=== PATIENT | female | born 1955 | race African-American/Black ===

== ENCOUNTER 2016-07-21 11:33 | Inpatient (IN) | payer SELFPAY ==
[2016-07-21] VITALS (11 sets, daily range): BP systolic 116–155; BP diastolic 51–67; PULSE 78–103; RESP 15–20; TEMP 98.3–99; O2SAT 92–98
[~2016-07-21] VITALS: Ht 170.2 cm; Wt 83.3 kg
[~2016-07-21 11:33] MED LIST: Z.0.NO CURRENT MEDS
[2016-07-21 13:33] LABS: AUTOMATED NEUTROPHIL # 2.3 TH/MM3 (1.8-7.7); BASOPHIL % 0.5 % (0.0-2.0); EOSINOPHIL % 0.4 % (0.0-4.0); LYMPH % 28.7 % (9.0-44.0); LYMPHOCYTE # 1.2 TH/MM3 (1.0-4.8); MEAN CELL VOLUME 114.4 FL (80.0-100.0); MEAN CORPUSCULAR HEMOGLOBIN 35.7 PG (27.0-34.0); MEAN CORPUSCULAR HGB CONC 31.2 % (32.0-36.0); MONO % 13.8 % (0.0-8.0); NEUT % 56.6 % (16.0-70.0); PLATELET COUNT 216 TH/MM3 (150-450); RED CELL DISTRIBUTION WIDTH 33.1 % (11.6-17.2)
[2016-07-21 13:37] LABS: RED BLOOD COUNT 0.72 MIL/MM3 (4.00-5.30)
[2016-07-21 13:46] LABS: HEMATOCRIT 8.2 % (35.0-46.0); HEMO FLAGS AUTO DIFF
[2016-07-21] MEDS ORDERED: SODIUM CHLORIDE 0.9% FLUSH 5 ML FLUSH IVF PRN (14:00)
[2016-07-21 14:01] LABS: BICARBONATE 19.9 MEQ/L (21.0-32.0); POTASSIUM 3.9 MEQ/L (3.5-5.1)
[2016-07-21 14:13] LABS: KERATOCYTES 1+ (NORMAL); PLATELET ESTIMATE SMEAR NORMAL (NORMAL); PLATELET MORPHOLOGY NORMAL (NORMAL); SCAN/DIFF AUTO DIFF CONFIRMED
[2016-07-21 14:30] LABS: REVIEW FLAG FINAL
[2016-07-21 14:32] LABS: HEMATOCRIT 8.8 % (35.0-46.0)
--- NOTE | 2016-07-21 14:37 | PD ---
HPI Chief Complaint: General Weakness Time Seen by Provider: 13:50 Travel History International Travel<30 days: No Contact w/Intl Traveler<30days: No Traveled to known affect area: No History of Present Illness HPI Patient is a 60-year-old female with history of anemia, pancytopenia by chart review, who presents the emergency department with generalized weakness. For the last 1-2 weeks she has been feeling increasingly generally weak, fatigued. She notes dyspnea with exertion. She denies any chest pain. No nausea or vomiting. She denies any rectal bleeding. She states she's been eating and drinking normally. Patient was hospitalized approximately one year ago with a hemoglobin of approximately 3 and pancytopenia. States she never followed up with hematology as an outpatient. [facility] Past Medical History Arthritis: No Asthma: No Autoimmune Disease: No Anxiety: No Depression: No Cancer: No Cardiovascular Problems: No High Cholesterol: No Chemotherapy: No Chest Pain: No Congestive Heart Failure: No COPD: No Cerebrovascular Accident: No Diabetes: No Diminished Hearing: No Endocrine: No GERD: No Genitourinary: No Hiatal Hernia: No Immune Disorder: No Kidney Stones: No Musculoskeletal: No Neurologic: No Psychiatric: No Reproductive: No Respiratory: No Migraines: No Radiation Therapy: No Renal Failure: No Seizures: No Sickle Cell Disease: No Thyroid Disease: No Ulcer: No Past Surgical History Abdominal Surgery: No AICD: No Cardiac Surgery: No Genitourinary Surgery: No Gynecologic Surgery: No Insulin Pump: No Joint Replacement: No Pacemaker: No Thoracic Surgery: No Social History Alcohol Use: No Tobacco Use: No Substance Use: No Allergies-Medications (Allergen,Severity, Reaction): Coded Allergies: No Known Allergies (Verified , 07/25/15) Reported Meds & Prescriptions Reported Meds & Active Scripts Active Reported No Current Meds (Miscellaneous Medication) Misc Review of Systems Except as stated in HPI: all other systems reviewed are Neg Physical Exam Narrative GENERAL: Well-appearing female in no acute distress SKIN: Warm and dry. HEAD: Normocephalic. EYES: No scleral icterus. No injection or drainage. Pale conjunctiva ENT: Mucous membranes pink and moist. NECK: Supple CARDIOVASCULAR: Borderline tachycardia, heart rate 100s, regular rhythm. No murmur appreciated. RESPIRATORY: No accessory muscle use. Clear to auscultation. Breath sounds equal bilaterally. GASTROINTESTINAL: Abdomen soft, non-tender, nondistended. RECTAL: Unremarkable digital rectal examination. Positive Hemoccult. MUSCULOSKELETAL: Normal gait NEUROLOGICAL: Awake and alert. Normal speech. PSYCHIATRIC: Appropriate mood and affect; insight and judgment normal. Data Data Last Documented VS Vital Signs Date Time Temp Pulse Resp B/P Pulse Ox O2 Delivery O2 Flow Rate FiO2 07/21/16 11:39 98.6 103 16 116/55 95 Orders Complete Blood Count With Diff (07/21/16 11:41) Basic Metabolic Panel (Bmp) (07/21/16 11:41) Chest, Pa & Lat (07/21/16 11:41) Electrocardiogram (07/21/16 11:41) Troponin I (07/21/16 13:12) Prothrombin Time / Inr (Pt) (07/21/16 14:00) Act Partial Throm Time (Ptt) (07/21/16 14:00) Type And Screen (07/21/16 14:00) Red Blood Cells (Rbc) (07/21/16 14:00) Blood Product Administration .UPON TRANSFUSION (07/21/16 14:00) Ecg Monitoring (07/21/16 14:00) Iv Access Insert/Monitor (07/21/16 14:00) Oximetry (07/21/16 14:00) Sodium Chloride 0.9% Flush (Ns Flush) (07/21/16 14:00) Hgb & Hct (07/21/16 14:00) Consult Hematology (07/21/16 ) Chest, Single Ap (07/21/16 ) Labs Laboratory Tests Test 07/21/16 07/21/16 13:07 14:10 White Blood Count 4.0 TH/MM3 Red Blood Count 0.72 MIL/MM3 Hemoglobin 2.6 GM/DL 2.7 GM/DL Hematocrit 8.2 % 8.8 % Mean Corpuscular Volume 114.4 FL Mean Corpuscular Hemoglobin 35.7 PG Mean Corpuscular Hemoglobin 31.2 % Concent Red Cell Distribution Width 33.1 % Platelet Count 216 TH/MM3 Mean Platelet Volume 11.2 FL Neutrophils (%) (Auto) 56.6 % Lymphocytes (%) (Auto) 28.7 % Monocytes (%) (Auto) 13.8 % Eosinophils (%) (Auto) 0.4 % Basophils (%) (Auto) 0.5 % Neutrophils # (Auto) 2.3 TH/MM3 Lymphocytes # (Auto) 1.2 TH/MM3 Monocytes # (Auto) 0.6 TH/MM3 Eosinophils # (Auto) 0.0 TH/MM3 Basophils # (Auto) 0.0 TH/MM3 CBC Comment AUTO DIFF Differential Comment AUTO DIFF CONFIRMED Platelet Estimate NORMAL Platelet Morphology Comment NORMAL Keratocytes 1+ Sodium Level 134 MEQ/L Potassium Level 3.9 MEQ/L Chloride Level 106 MEQ/L Carbon Dioxide Level 19.9 MEQ/L Anion Gap 8 MEQ/L Blood Urea Nitrogen 10 MG/DL Creatinine 0.91 MG/DL Estimat Glomerular Filtration 76 ML/MIN Rate Random Glucose 143 MG/DL Calcium Level 7.6 MG/DL Troponin I 0.02 NG/ML MDM Medical Decision Making Medical Screen Exam Complete: Yes Emergency Medical Condition: Yes Medical Record Reviewed: Yes Differential Diagnosis 60-year-old female with history of pancytopenia here with generalized weakness worsening for the last 1-2 weeks with dyspnea on exertion. Differential includes anemia, electrolyte abnormality, renal dysfunction, UTI, arrhythmia, ACS. Narrative Course Patient placed on monitor, IV established and blood obtained. A twelve-lead EKG shows sinus rhythm with T-wave inversions V4 through V6. I do not have an old EKG with which to compare. CBC, BMP, troponin, coags, type and screen obtained and notable for hemoglobin 2.6. This was rechecked and is true. Patient was transfused with 4 units packed red blood cells. Hematology consulted given history of pancytopenia. Her Hemoccult was positive, but patient is on iron supplementation which could make this a false positive. Patient will be admitted for further management. Critical Care Narrative Aggregate critical care time was 55 minutes. Time to perform other separately billable procedures was not included in the critical care time. My time did not include minutes spent treating any other patients simultaneously or on activities that did not directly contribute to the patient's treatment. The services I provided to this patient were to treat and/or prevent clinically significant deterioration that could result in: CardioPulmonary decompensation, , disability I provided critical care services requiring my management, as noted below: Chart data review, documentation time, medication orders and management, vital sign assessments/reviewing monitor data, ordering and reviewing lab tests, ordering and interpreting/reviewing x-rays and diagnostic studies, care of the patient and discussion of the patient with the admitting physicians. H[facility]pt Point of Care Internal Pos. & Neg. Controls: Passed Fecal Specimen Occult Blood: Positive Diagnosis Primary Impression: Severe anemia Additional Impressions: Generalized weakness Dyspnea on exertion Admitting Information Admitting Physician Requests: Admit Sera Patel MD Jul 21, 2016 14:37
[2016-07-21 14:58] LABS: APTT (PATIENT) 19.8 SEC (24.3-30.1); INTERNATIONAL NORMALIZED RATIO 1.1 RATIO; PROTHROMBIN TIME - PATIENT 12.5 SEC (9.8-11.6)
--- NOTE | 2016-07-21 16:05 | HHI.HP ---
[facility] Family Medicine Primary Care Physician No Primary Care Physician Admission Diagnosis severe anemia Diagnoses: International Travel<30 Days: No Contact w/Intl Traveler<30days: No Known Affected Area: No History of Present Illness Patient is a 60-year-old female who does not get regular medical care who presents here today for severe anemia. Patient had been complaining of increased weakness and shortness of breath over the last few weeks that have progressively worsened. She is severely fatigued and short of breath when walking from her house to a car. She denies any melena, hematochezia or any other source of bleeding. Denies weight loss, night sweats, nausea/vomiting, abdominal pain. She does endorse symptoms of cough with clear sputum and hoarseness 8 days. Of note patient was admitted one year ago on 07/2015 for symptomatic anemia and found to have a hemoglobin 3.0. It was recommended to have a bone marrow biopsy however does not appear that this was done as patient left AMA. Today she reports that she simply wants to get a blood transfusion and then leave. She is currently refusing a bone marrow biopsy as she believes it is done in black people and causes cancer. I thoroughly explained to patient that this is not the case. Patient is willing to stay at this time. ( January Romano MD R2) Review of Systems Constitutional: COMPLAINS OF: Fatigue, DENIES: Fever, Weight loss, Chills Respiratory: COMPLAINS OF: Cough, Sputum production, Shortness of breath, DENIES: Hemoptysis Cardiovascular: COMPLAINS OF: Dyspnea on Exertion, Lower Extremity Edema, DENIES: Chest pain, Palpitations Gastrointestinal: DENIES: Abdominal pain, Black stools, Bloody stools, Nausea, Vomiting Genitourinary: DENIES: Hematuria Musculoskeletal: DENIES: Joint Swelling Neurologic: DENIES: Abnormal gait (January Romano MD R2) Past Family Social History Past Medical History Previously admitted on 07/2015 for symptomatic anemia and found to have a hemoglobin 3.0 it was recommended to have a bone marrow biopsy however this was not done as patient left AMA Past Surgical History Denies Reported Medications Reported Meds & Active Scripts Active Reported No Current Meds (Miscellaneous Medication) Misc (January Romano MD R2) Allergies: Coded Allergies: No Known Allergies (Verified , 07/25/15) Family History Mother: Cardiac issues, depression Father: Stomach issues. Alcoholic. Social History Lives alone Alcohol: Denies, maybe 1 drink a year Tobacco: None, reports quitting years ago but is unable to specify how long ago where or how much she used to smoke. Illicit: Denies (January Romano MD R2) Physical Exam Vital Signs Vital Signs Date Time Temp Pulse Resp B/P Pulse Ox O2 Delivery O2 Flow Rate FiO2 07/21/16 15:45 99.0 93 15 121/51 98 Room Air 07/21/16 15:45 99.0 93 15 121/51 97 Room Air 07/21/16 14:15 15 98 Room Air 07/21/16 11:39 98.6 103 16 116/55 95 Physical Exam GENERAL: This is a well-nourished, well-developed patient, in no apparent distress. Hoarse voice. SKIN: No rashes, ecchymoses or lesions. Cool and dry. HEAD: Atraumatic. Normocephalic. No temporal or scalp tenderness. EYES: Pupils equal round and reactive. Extraocular motions intact. No scleral icterus. No injection or drainage. ENT: Nose without bleeding, purulent drainage. Throat without erythema, tonsillar hypertrophy or exudate. Uvula midline. Airway patent. NECK: Trachea midline. No lymphadenopathy. Supple, nontender, no meningeal signs. CARDIOVASCULAR: Regular rate and rhythm without murmurs, gallops, or rubs. RESPIRATORY: Clear to auscultation. Breath sounds equal bilaterally. No wheezes , rales, or rhonchi. GASTROINTESTINAL: Abdomen soft, non-tender, nondistended. No hepato-splenomegaly , or palpable masses. No guarding. MUSCULOSKELETAL: Extremities without clubbing, cyanosis. 2+ edema bilaterally up to mid shins. No calf tenderness. Negative Homans sign bilaterally. NEUROLOGICAL: Awake and alert. Motor and sensory grossly within normal limits. Normal speech. Laboratory Laboratory Tests Test 07/21/16 07/21/16 13:07 14:10 White Blood Count 4.0 Red Blood Count 0.72 Hemoglobin 2.6 2.7 Hematocrit 8.2 8.8 Mean Corpuscular Volume 114.4 Mean Corpuscular Hemoglobin 35.7 Mean Corpuscular Hemoglobin 31.2 Concent Red Cell Distribution Width 33.1 Platelet Count 216 Mean Platelet Volume 11.2 Neutrophils (%) (Auto) 56.6 Lymphocytes (%) (Auto) 28.7 Monocytes (%) (Auto) 13.8 Eosinophils (%) (Auto) 0.4 Basophils (%) (Auto) 0.5 Neutrophils # (Auto) 2.3 Lymphocytes # (Auto) 1.2 Monocytes # (Auto) 0.6 Eosinophils # (Auto) 0.0 Basophils # (Auto) 0.0 CBC Comment AUTO DIFF Differential Comment AUTO DIFF CONFIRMED Platelet Estimate NORMAL Platelet Morphology Comment NORMAL Keratocytes 1+ Sodium Level 134 Potassium Level 3.9 Chloride Level 106 Carbon Dioxide Level 19.9 Anion Gap 8 Blood Urea Nitrogen 10 Creatinine 0.91 Estimat Glomerular Filtration 76 Rate Random Glucose 143 Calcium Level 7.6 Troponin I 0.02 Prothrombin Time 12.5 Prothromb Time International 1.1 Ratio Activated Partial 19.8 Thromboplast Time Blood Type O POSITIVE Antibody Screen NEGATIVE Crossmatch Leukocyte-Reduced Red Blood Cells Blood Bank Comment (January Romano MD R2) Result Diagram: 07/21/16 1410 07/21/16 1307 Assessment and Plan Assessment and Plan 60-year-old female with no significant PMH. Admitted for severe anemia. Code Status Full Discussed Condition With Dr. Ochoa and Dr. Lawrence (January Romano MD R2) Problem List: (1) Severe anemia Status: Acute Plan: Found to have severe symptomatic anemia on admission with an H&H of 2.6/ 8.2 with immediate repeat of 2.7/8.8 which shows the reliability of those results. History significant for prior history of severe anemia one year ago, however she was also found to be pancytopenic at that time. Remaining cell lines on this admission are unremarkable. No identifiable source of bleeding at this time. Hemoccult in the ED was positive but the patient was also taking iron. -EKG shows T-wave inversions in lateral leads which is likely due to severe anemia especially in the setting of a normal troponin and in the absence of chest pain. -Iron studies not suggestive of iron deficiency anemia. Percent saturation is 93% and ferritin is elevated at 777. -Transfuse 4 units -B12 and folate WNL -MMA ordered -Will consider getting GI consult after discussion with attending Hematology consulted: Appreciate recommendations (2) CHF (congestive heart failure) Status: Acute Plan: Suspected undiagnosed CHF exacerbation. Chest x-ray significant for cardiomegaly even in the setting of AP view. BMP is elevated at 633. No pleural effusions noted. -Echo ordered -Cardiac telemetry Medications: * Lasix provided between transfusions * Lasix 40 mg IV daily (3) Hoarseness of voice Status: Acute Plan: 1 week history of voice hoarseness and cough. May be due to recent cold , however symptoms may be due to a malignancy. No associated unintentional weight loss or night sweats or palpable lymph nodes. Patient has not had preventive colonoscopy and is found to have severe anemia but this anemia is not due to iron deficiency. -Consider getting GI consult for possible EGD in addition to colonoscopy. (4) Nutrition, metabolism, and development symptoms Status: Acute Plan: Diet: Regular Fluids: None Electrolytes: Mild hyponatremia, continue to monitor DVT prophylaxis: Contraindicated due to potential bleed GI prophylaxis: Protonix 40 daily (January Romano MD R2) Physician Certification 2 Midnight Certification Type: Admission for Inpatient Services Order for Inpatient Services The services are ordered in accordance with Medicare regulations or non- Medicare payer requirements, as applicable. In the case of services not specified as inpatient-only, they are appropriately provided as inpatient services in accordance with the 2-midnight benchmark. Estimated LOS (days): 2 days is the estimated time the patient will need to remain in the hospital, assuming treatment plan goals are met and no additional complications. Post-Hospital Plan: Home (January Romano MD R2) 2 Midnight Certification Type: Admission for Inpatient Services Post-Hospital Plan: Home (Jona Lawrence MD) January Romano MD R2 Jul 21, 2016 16:05 Jona Lawrence MD Jul 21, 2016 22:24
--- NOTE | 2016-07-21 16:20 | HHI.CCPN ---
History - Height: 170.18 cm Weight: 79.55 kg Allergies: Coded Allergies: No Known Allergies (Verified , 07/25/15) Major 24 Hour Events Notified by Dr. Kearney/ED physician regarding admission to ICU of [facility] with hemoglobin 2.7. She has a known history of anemia and was supposed to get a bone marrow biopsy this month but however has been able to proceed with this. She has currently hemodynamically stable and is being admitted under the care of the [facility]. We'll be available if our services are needed but not needed at this time.. Exam Patient Data - Vital Signs Date Time Temp Pulse Resp B/P Pulse Ox O2 Delivery O2 Flow Rate FiO2 07/21/16 16:00 98.3 94 15 152/64 98 Room Air 07/21/16 15:45 99.0 93 15 121/51 98 Room Air 07/21/16 15:45 99.0 93 15 121/51 97 Room Air 07/21/16 14:15 15 98 Room Air 07/21/16 11:39 98.6 103 16 116/55 95 Results CBC/BMP: 07/21/16 1410 07/21/16 1307 Ricky Parsons MD Jul 21, 2016 16:20
[2016-07-21] MEDS ORDERED: ONDANSETRON HCL 4 MG/2 ML VIAL IVP PRN (16:45)
[2016-07-21] MEDS ORDERED: SODIUM CHLORIDE 0.9% FLUSH 5 ML FLUSH FLUSH PRN (16:45)
[2016-07-21] MEDS ORDERED: FUROSEMIDE 20 MG/2 ML VIAL IV ONE (16:45)
[2016-07-21] MEDS ORDERED: NALOXONE HCL 0.4 MG/ML AMP IV PRN ×2 (16:45→21:45)
[2016-07-21] MEDS ORDERED: ENALAPRILAT 1.25 MG/ML VIAL IV PRN (16:45)
[2016-07-21 17:51] LABS: FERRITIN 777 NG/ML (8-252); TRANSFERRIN IRON PROFILE 160 MG/DL (200-360)
[2016-07-21] MEDS ORDERED: SODIUM CHLORIDE 0.9% FLUSH 5 ML FLUSH FLUSH SCH (21:00)
[2016-07-21] MEDS ORDERED: ACETAMINOPHEN 325 MG TAB PO PRN (21:45)
[2016-07-21] MEDS ORDERED: ACETAMINOPHEN/HYDROcodone 325 MG/10 MG TAB PO PRN (21:45)
[2016-07-21] MEDS ORDERED: ACETAMINOPHEN/HYDROcodone 325 MG/5 MG TAB PO PRN (21:45)
[2016-07-21] MEDS ORDERED: CHLORHEXIDINE GLUCONATE 2 % 1 PACK (2 CLOTHS)(extra cloths) TOP PRN (21:45)
--- NOTE | 2016-07-21 22:29 | HHI.FPPN ---
Subjective Remarks Attending note: Patient seen and examined. Very pleasant 60-year-old woman admitted with a hemoglobin of 2.7, hematocrit of 8.2 and complaints over the last 2 or 3 weeks of a cough. Very notable that in July 2015 the patient had an admission with a hemoglobin of 5.7, hematocrit 17.4, platelets of 1.8 and platelets of 71,000. Patient was being evaluated by hematology, however, she was very concerned that she had larger bill was already "13,000 hours "she had no insurance and she stated she just had to leave. She was very concerned about financial consequences. Patient has been taking cod liver oil oil, and iron tablets, and fish oil capsules after her last hospitalization. Apparently, the patient had been getting more and more fatigued. She went to a local convenience store last night and upon coming back to the car stated she was so tired and short of breath. No chest pain. Please refer to the resident's history and physical for complete discussion of the past month which, family history and social history as well as review of systems. Objective Vitals Vital Signs Date Time Temp Pulse Resp B/P Pulse Ox O2 Delivery O2 Flow Rate FiO2 07/21/16 21:15 98.7 87 20 131/65 92 07/21/16 20:21 84 18 122/58 96 07/21/16 19:00 98.8 78 15 134/64 98 07/21/16 18:45 98.5 97 16 131/62 97 Room Air 07/21/16 18:30 98.7 91 16 139/63 97 Room Air 07/21/16 17:45 96 15 131/60 97 Room Air 07/21/16 16:49 98.5 90 15 155/67 98 Room Air 07/21/16 16:00 98.3 94 15 152/64 98 Room Air 07/21/16 15:45 99.0 93 15 121/51 98 Room Air 07/21/16 15:45 99.0 93 15 121/51 97 Room Air 07/21/16 14:15 15 98 Room Air 07/21/16 11:39 98.6 103 16 116/55 95 I/O 07/20/16 07/20/16 07/20/16 07/21/16 07/21/16 07/21/16 07:00 15:00 23:00 07:00 15:00 23:00 Intake Total 550 ml Balance 550 ml Intake Packed Cells 550 ml Result Diagram: 07/21/16 1410 07/21/16 1307 Objective Remarks Vital signs noted. Afebrile. General appearance: Middle-aged woman who is very pleasant in conversation. Very articulate. HEENT: Oropharynx pale mucosa Lungs: Clear to auscultation. Cardiac: S1-S2, no S3, heart rate slightly increased. Abdomen: Protuberant, nontender, no apparent masses or organomegaly. Extremities: Trace treated with edema, the feet are warm and dry, pulses are intact. Please refer to the resident physical exam for complete discussion details. A/P Assessment and Plan Clinical assessment 60-year-old woman admitted with profound anemia and a 2 to three-week history of cough. Patient seen and examined. Case reviewed and discussed with resident team. Agree with plan of care as discussed with me and documented in the resident note. Problem List: (1) Severe anemia Status: Acute Plan: Found to have severe symptomatic anemia on admission with an H&H of 2.6/ 8.2 with immediate repeat of 2.7/8.8 which shows the reliability of those results. History significant for prior history of severe anemia one year ago, however she was also found to be pancytopenic at that time. Remaining cell lines on this admission are unremarkable. No identifiable source of bleeding at this time. Hemoccult in the ED was positive but the patient was also taking iron. -EKG shows T-wave inversions in lateral leads which is likely due to severe anemia especially in the setting of a normal troponin and in the absence of chest pain. -Iron studies not suggestive of iron deficiency anemia. Percent saturation is 93% and ferritin is elevated at 777. -Transfuse 4 units -B12 and folate WNL -MMA ordered -Will consider getting GI consult after discussion with attending Hematology consulted: Appreciate recommendations (2) CHF (congestive heart failure) Status: Acute Plan: Suspected undiagnosed CHF exacerbation. Chest x-ray significant for cardiomegaly even in the setting of AP view. BMP is elevated at 633. No pleural effusions noted. -Echo ordered -Cardiac telemetry Medications: * Lasix provided between transfusions * Lasix 40 mg IV daily (3) Hoarseness of voice Status: Acute Plan: 1 week history of voice hoarseness and cough. May be due to recent cold , however symptoms may be due to a malignancy. No associated unintentional weight loss or night sweats or palpable lymph nodes. Patient has not had preventive colonoscopy and is found to have severe anemia but this anemia is not due to iron deficiency. -Consider getting GI consult for possible EGD in addition to colonoscopy. (4) Nutrition, metabolism, and development symptoms Status: Acute Plan: Diet: Regular Fluids: None Electrolytes: Mild hyponatremia, continue to monitor DVT prophylaxis: Contraindicated due to potential bleed GI prophylaxis: Protonix 40 daily Jona Lawrence MD Jul 21, 2016 22:29
[2016-07-22] VITALS: BP 135/63; PULSE 81; RESP 24; TEMP 98.9; O2SAT 97
[2016-07-22 00:05] VITALS: BP 138/62; PULSE 80; RESP 20; TEMP 98.6; O2SAT 100
[2016-07-22 02:00] VITALS: PULSE 80
[2016-07-22 02:15] VITALS: BP 135/63; PULSE 81; RESP 24; TEMP 98.9; O2SAT 97
[2016-07-22 03:45] LABS: AUTOMATED NEUTROPHIL # 2.3 TH/MM3 (1.8-7.7); BASOPHIL % 0.6 % (0.0-2.0); LYMPH % 22.1 % (9.0-44.0); LYMPHOCYTE # 0.8 TH/MM3 (1.0-4.8); MEAN CELL VOLUME 87.8 FL (80.0-100.0); MEAN CORPUSCULAR HEMOGLOBIN 30.7 PG (27.0-34.0); MONO % 10.4 % (0.0-8.0); NEUT % 65.9 % (16.0-70.0); PLATELET COUNT 160 TH/MM3 (150-450); RED BLOOD COUNT 2.34 MIL/MM3 (4.00-5.30); RED CELL DISTRIBUTION WIDTH 15.6 % (11.6-17.2); WHITE BLOOD COUNT 3.5 TH/MM3 (4.0-11.0)
[2016-07-22 03:47] LABS: RETIC % 12.2 % (0.4-3.0)
[2016-07-22 03:55] LABS: HEMO FLAGS DIFF FINAL
[2016-07-22 03:56] LABS: HEMATOCRIT 20.6 % (35.0-46.0)
[2016-07-22 03:58] LABS: REVIEW FLAG FINAL
[2016-07-22 04:00] VITALS: BP 129/61; PULSE 78; RESP 24; TEMP 99.1; O2SAT 98
[2016-07-22] MEDS ORDERED: CHLORHEXIDINE GLUCONATE 2 % 1 PACK (2 CLOTHS)(taper/protocol) TOP SCH (04:00)
[2016-07-22 04:27] LABS: POTASSIUM 3.5 MEQ/L (3.5-5.1)
[2016-07-22 05:01] LABS: CALCIUM-PROTEIN CORRECTED 7.6 MG/DL (8.5-10.1)
[2016-07-22 06:00] VITALS: PULSE 82
--- NOTE | 2016-07-22 08:12 | RADRPT ---
EXAM DATE/TIME: 07/21/2016 15:31 [facility] COMPARISON: CHEST SINGLE AP, July 25, 2015, 2:37. INDICATIONS : Short of breath. MEDICAL HISTORY : None. SURGICAL HISTORY : None. ENCOUNTER: Initial ACUITY: 2 weeks PAIN SCORE: 0/10 LOCATION: Chest FINDINGS: The heart is markedly enlarged. There are mild interstitial vascular congestive changes. There is no evidence of pleural effusion. Osseous structures are intact. CONCLUSION: Marked cardiomegaly with mild congestive changes. Steven Leary MD on July 21, 2016 at 16:24 Board Certified Radiologist. This report was verified electronically.
[2016-07-22] MEDS ORDERED: PANTOPRAZOLE SOD 40 MG DELAYED RELEASE TAB PO SCH (09:00)
[2016-07-22] MEDS ORDERED: FUROSEMIDE 40 MG/4 ML VIAL IV PUSH SCH (09:00)
--- NOTE | 2016-07-22 10:18 | MB ---
cc: NATE MARINELLI DATE OF CONSULTATION: 07/21/2016 DATE OF : 1955 REASON FOR CONSULTATION: Patient with severe anemia. CHIEF COMPLAINT Severe dyspnea, generalized weakness and dizziness. HISTORY OF PRESENT ILLNESS This is a 60-year-old female who is had a recurrent admission this month for severe anemia. He she was admitted earlier this month with worsening fatigue and weakness. She was progressively short of breath. In the emergency room she was found to be severely anemic with hemoglobin of 3. She was also leukopenic and had thrombocytopenia. She was seen by the hematology service, a bone marrow biopsy was recommended but this was not completed as this patient left the hospital. She now presents with worsening dyspnea and weakness and this admission she was found to have a hemoglobin of 2.6. Her WBC 4, platelet count is 216. The patient is somewhat a poor historian and she has not seen a primary care physician for very long time. She stated that she does not have insurance and she was not able to see a doctor. She states that she has been feeling ill for several months. The main symptoms are fatigue and generalized weakness and shortness of breath. She has not seen any bright red blood per rectum or melena. She is has not had any hematuria. She denies any night sweats or fevers. He has not had any recurrent infections. REVIEW OF SYSTEMS A comprehensive 14-point review of systems was completed which is negative except as described in the HPI. PAST MEDICAL HISTORY Previous admission for symptomatic anemia in early July 2015. She left against medical advice. PAST SURGICAL HISTORY None MEDICATIONS Home medications none. ALLERGIES NO KNOWN DRUG ALLERGIES. FAMILY HISTORY: Family history is significant for coronary artery disease. SOCIAL HISTORY She lives alone. She rarely drinks alcohol. She says that she quit smoking many years ago. PHYSICAL EXAMINATION VITAL SIGNS: Blood pressure is 121/51, pulse is in the 90s, temperature is 99, pulse ox is 98% on room air. IN GENERAL: Chronically ill-appearing thin elderly female. HEAD, EYES, EARS, NOSE, AND THROAT: Pupils are equal, round, reactive to light. EOMI. No oral thrush. No oral lesions. NECK: The neck is supple. No JVD, no bruits. No lymphadenopathy. CHEST: Chest is clear to auscultation bilaterally. CARDIOVASCULAR SYSTEM: S1-S2, tachycardiac. There is a flow murmur. There is a systolic flow murmur. ABDOMEN: Soft, nontender, nondistended. Bowel sounds are present. EXTREMITIES: Without any edema, erythema or cyanosis. SKIN: Without any petechiae lesion or bruises. NEUROLOGIC: No focal deficits. PSYCHIATRIC: Psychiatric mood and affect is appropriate. LABORATORY DATA WBCs for hemoglobin is 2.6 and repeat hemoglobin is 2.7, MCV is 114.4, platelet count is 216. Sodium is 134, potassium 3.9, chloride 106, carbon dioxide 19.9, BUN and creatinine is 0.91, GFR is 76. Troponin is 0.02. PT is 12.5, PTT is 19.8. IMAGING STUDIES Chest x-ray reviewed. She has cardiomegaly. There are mild interstitial vascular changes, no acute abnormality. ASSESSMENT/PLAN This is a 60-year-old female who is being admitted with severe anemia. She has no other significant past medical history. She has not seen a physician for very long time. 1. Acute symptomatic anemia, I agree with packed red blood cell transfusion. She is being given 4 units of packed red blood cells. I am very concerned about an underlying bone marrow disorder. A bone marrow biopsy was previously recommended. The patient left the hospital against medical advice. We need to obtain a bone marrow biopsy with flow cytometry the FISH and cytogenetics. We need to rule out underlying hemolysis. I will obtain an LDH and haptoglobin. We should also obtain a direct Juan Manuel test. Check hepatitis and HIV status. I have reviewed her previous serum protein electrophoresis and there is no evidence of low monoclonal gammopathy. We should obtain a quantitative immunoglobulins. We should also check for monoclonal gammopathy in a urine sample. We will obtain a Upap and urine IMC. Iron studies do not show underlying iron deficiency, check B12 and folate levels. Will try to get a bone marrow biopsy on Sunday. I discussed this with the patient and she is agreeable to this procedure. 2. She has a very high HYUN titer, she needs additional workup for underlying autoimmune process. I will defer this to the primary team. Thank you for allowing me to participate in the care of this patient. I will continue to follow this patient along MD MIRIAM Mckinney/ben /12:12 AM /9:32 AM
--- NOTE | 2016-07-23 07:45 | PD.AMA ---
Against Medical Advice Note Discharge Disposition: Against Medical Advice AMA Statement Delayed documentation: Event occurred on 07/22 Patient Jaqueline Swan has decided to leave the hospital against medical advice. This patient has the capacity to refuse care and understands the risks of leaving, including permanent disability and/or . This discussion was performed at the time of admission as patient was already wanting to leave but understood that further work up was needed to identify cause of her sever anemia. Patient was a high AMA risk as she did this at her prior admission. Patient left before medical team was able to see her on the morning of 07/22/16 as more critical patients needed our medical services at the time. If patient is to return, we will accept the patient back. dw Dr. Destinee Ibarra and January Miguel MD R2 Jul 23, 2016 07:45
--- NOTE | 2016-07-24 23:47 | EKG ---
Date Performed: 07/21/2016 Time Performed: 12:57:33 PTAGE: 60 years EKG: Sinus rhythm MODERATE T-WAVE ABNORMALITY, CONSIDER LATERAL ISCHEMIA ABNORMAL ECG NO PREVIOUS TRACING DOCTOR: Frank Martin Interpretating Date/Time 07/24/2016 23:45:41
== END 2016-07-22 08:55 | disposition left against medical advice (07) | DRG 812 ==
LOC: NEPE 11:33 → NEDA 14:52 → NEDH 18:35 → HIME 21:00
PROVIDERS: ADMIT Family Medicine; ATTEND Family Medicine
PROC: 30233N1 Transfusion of Nonautologous Red Blood Cells into Peripheral Vein, Percutaneous Approach (ICD-10-PCS; principal; 2016-07-21)
DX: D64.9 Anemia, unspecified (principal); E87.1 Hypo-osmolality and hyponatremia; I50.9 Heart failure, unspecified; R06.02 Shortness of breath; R42 Dizziness and giddiness; R49.0 Dysphonia; R53.1 Weakness
CPT/HCPCS: 36430; 71010; 80048; 82607; 82728; 82746; 83010; 83540; 83550; 83615; 83880; 83921; 84155; 84484; 85014; 85018; 85025; 85044; 85384; 85610; 85730; 86705; 86803; 86850; 86900; 86901; 86920; 87340; 87641; 93005; J1940; P9016

== ENCOUNTER 2017-04-07 19:21 | Inpatient (IN) | payer SELFPAY ==
[~2017-04-07] VITALS: Ht 170.2 cm; Wt 83.5 kg
[2017-04-07 19:23] VITALS: BP 137/60; PULSE 110; RESP 18; TEMP 99; O2SAT 95
[2017-04-07 20:26] VITALS: BP 144/65; PULSE 110; RESP 20; O2SAT 92
[2017-04-07] MEDS ORDERED: SODIUM CHLORID 0.9% 500 ML INJ 500 ML IV ONE (20:30)
--- NOTE | 2017-04-07 20:42 | PD ---
HPI Chief Complaint: General Weakness Time Seen by Provider: 20:21 Travel History International Travel<30 days: No Contact w/Intl Traveler<30days: No Traveled to known affect area: No History of Present Illness HPI 61-year-old female that presents to the ED for evaluation of generalized weakness. Per patient for about a week she's been having cold-like symptoms and weakness. Patient she feels short of breath with exertion. She denies any chest pain. No abdominal pain. Per patient she went to [facility] and got a medication to help with her congestion and states that ever since she took it she feels more dry than usual. Per patient her legs are getting swollen since she started this new medication. Per patient is [id number] and she does not remember the name but is supposed to be at the congestion. Per patient it is a pill. She has a chronic history of anemia and takes iron supplementation as well as B12 outpatient. She does not follow with the operations research scientist. She has required transfusions in the past. She states that she has congestion and cough. No sick contacts. No allergies to medication. Per patient she comes here mainly for the weakness. Patient states that she does not want to stay in the hospital. PFSH Past Medical History Anemia: Yes Arthritis: No Asthma: No Autoimmune Disease: No Anxiety: No Depression: No Cancer: No Cardiovascular Problems: No High Cholesterol: No Chemotherapy: No Chest Pain: No Congestive Heart Failure: No COPD: No Cerebrovascular Accident: No Diabetes: No Diminished Hearing: No Endocrine: No GERD: No Genitourinary: No Hiatal Hernia: No Immune Disorder: No Kidney Stones: No Musculoskeletal: No Neurologic: No Psychiatric: No Reproductive: No Respiratory: No Migraines: No Radiation Therapy: No Renal Failure: No Seizures: No Sickle Cell Disease: No Thyroid Disease: No Ulcer: No Past Surgical History Surgical History: No Previous Surgery Abdominal Surgery: No AICD: No Cardiac Surgery: No Genitourinary Surgery: No Gynecologic Surgery: No Insulin Pump: No Joint Replacement: No Pacemaker: No Thoracic Surgery: No Social History Alcohol Use: No Tobacco Use: No Substance Use: No Allergies-Medications (Allergen,Severity, Reaction): Coded Allergies: No Known Allergies (Verified , 04/07/17) Reported Meds & Prescriptions Reported Meds & Active Scripts Active No Active Prescriptions or Reported Medications Review of Systems Except as stated in HPI: all other systems reviewed are Neg Physical Exam Narrative GENERAL: SKIN: Warm and dry. HEAD: Atraumatic. Normocephalic. EYES: Pupils equal and round. No scleral icterus. No injection or drainage. Patient does appear to have some whitening of the inside of the lower eyelids bilaterally. ENT: No nasal bleeding or discharge. Mucous membranes pink and moist. Tongue is midline. No uvula deviation. TMs are clear with no sign of infection or perforation. NECK: Trachea midline. No JVD. CARDIOVASCULAR: Regular rate and rhythm. RESPIRATORY: No accessory muscle use. Clear to auscultation. Breath sounds equal bilaterally. GASTROINTESTINAL: Abdomen soft, non-tender, nondistended. Hepatic and splenic margins not palpable. MUSCULOSKELETAL: Extremities without clubbing, cyanosis, or edema. No obvious deformities. Full range of motion of the upper and lower extremities bilaterally. 1+ pitting edema on the lower extremities. 2+ pulses bilaterally. NEUROLOGICAL: Awake and alert. No obvious cranial nerve deficits. Motor grossly within normal limits. Five out of 5 muscle strength in the arms and legs. Normal speech. PSYCHIATRIC: Appropriate mood and affect; insight and judgment normal. Data Data Last Documented VS Vital Signs Date Time Temp Pulse Resp B/P (MAP) Pulse Ox O2 Delivery O2 Flow Rate FiO2 04/07/17 20:26 110 20 144/65 (91) 92 Room Air 04/07/17 19:23 99.0 Orders Orders Electrocardiogram (04/07/17 20:28) Complete Blood Count With Diff (04/07/17 20:28) Basic Metabolic Panel (Bmp) (04/07/17 20:28) Prothrombin Time / Inr (Pt) (04/07/17 20:28) Act Partial Throm Time (Ptt) (04/07/17 20:28) Magnesium (Mg) (04/07/17 20:28) Thyroid Stimulating Hormone (04/07/17 20:28) Influenzae A/B Antigen (04/07/17 20:28) Chest, Single Ap (04/07/17 20:28) Iv Access Insert/Monitor (04/07/17 20:28) Lactic Acid (04/07/17 20:28) B-Type Natriuretic Peptide (04/07/17 20:28) Sodium Chlorid 0.9% 500 Ml Inj (Ns 500 M (04/07/17 20:30) Furosemide Inj (Lasix Inj) (04/07/17 21:45) Type And Screen (04/07/17 21:40) Red Blood Cells (Rbc) (04/07/17 21:40) Blood Product Administration (04/07/17 21:40) Sodium Chlor 0.9% 250 Ml Inj (Ns 250 Ml (04/07/17 21:45) Red Blood Cells (Rbc) (04/07/17 21:50) Admit Order (Ed Use Only) (04/07/17 22:09) Labs Laboratory Tests Test 04/07/17 20:35 White Blood Count 4.7 TH/MM3 Red Blood Count 1.03 MIL/MM3 Hemoglobin 3.5 GM/DL Hematocrit 11.7 % Mean Corpuscular Volume 113.5 FL Mean Corpuscular Hemoglobin 34.4 PG Mean Corpuscular Hemoglobin Concent 30.3 % Red Cell Distribution Width 35.7 % Platelet Count 231 TH/MM3 Mean Platelet Volume 10.0 FL Neutrophils (%) (Auto) 44.8 % Lymphocytes (%) (Auto) 39.0 % Monocytes (%) (Auto) 13.9 % Eosinophils (%) (Auto) 1.8 % Basophils (%) (Auto) 0.5 % Neutrophils # (Auto) 2.1 TH/MM3 Lymphocytes # (Auto) 1.8 TH/MM3 Monocytes # (Auto) 0.7 TH/MM3 Eosinophils # (Auto) 0.1 TH/MM3 Basophils # (Auto) 0.0 TH/MM3 CBC Comment AUTO DIFF Differential Comment AUTO DIFF CONFIRMED Platelet Estimate NORMAL Platelet Morphology Comment NORMAL Basophilic Stippling FAINT Tear Drop Cells 2+ Ovalocytes 1+ Keratocytes OCC Prothrombin Time 12.0 SEC Prothromb Time International Ratio 1.1 RATIO Activated Partial Thromboplast Time 24.7 SEC Blood Urea Nitrogen 8 MG/DL Creatinine 0.78 MG/DL Random Glucose 105 MG/DL Calcium Level 7.6 MG/DL Magnesium Level 2.4 MG/DL Sodium Level 134 MEQ/L Potassium Level 3.8 MEQ/L Chloride Level 106 MEQ/L Carbon Dioxide Level 19.2 MEQ/L Anion Gap 9 MEQ/L Estimat Glomerular Filtration Rate 91 ML/MIN Lactic Acid Level 1.6 mmol/L B-Type Natriuretic Peptide 341 PG/ML Thyroid Stimulating Hormone 3rd Gen 1.550 uIU/ML MDM Medical Decision Making Medical Screen Exam Complete: Yes Emergency Medical Condition: Yes Medical Record Reviewed: Yes Interpretation(s) CBC & BMP Diagram 04/07/17 20:35 Calcium Level 7.6 L, Magnesium Level 2.4 Last Impressions Chest X-Ray 04/07/172027 Signed Impressions: Service Date/Time: Sunday, April 07, 2017 21:23 - CONCLUSION: Diffuse bilateral infiltrates greatest at the bases. Marked cardiomegaly. Zach Doshi MD BNP of 300s Differential Diagnosis CHF versus anemia versus severe anemia versus kidney failure versus URI versus pneumonia versus fluid overload Narrative Course 61-year-old female that presents to the ED for evaluation of generalized weakness. Patient was properly examined and was found to have signs and symptoms of unclear etiology. Patient does have a history of CHF as well as anemia requiring transfusion in the past. Labs and imaging were ordered. Labs and imaging showed severe anemia. Case was discussed in my attending Dr. Luna who recommends admission to the critical care. 4 units of blood were ordered. I did a Hemoccult on the patient and was negative. My attending Dr. Luna and I spoke with the patient in length on the in need for her to stay. She agreed to stay. Case discussed with Dr. Cope who agrees to admission. [facility] Point of Care Internal Pos. & Neg. Controls: Passed Fecal Specimen Occult Blood: Negative Diagnosis Primary Impression: Symptomatic anemia Additional Impressions: Severe anemia Generalized weakness Admitting Information Admitting Physician Requests: Admit Scripts No Active Prescriptions or Reported Meds Chito Arteaga Apr 07, 2017 20:42
[2017-04-07 21:25] LABS: AUTOMATED NEUTROPHIL # 2.1 TH/MM3 (1.8-7.7); BASOPHIL % 0.5 % (0.0-2.0); EOSINOPHIL # 0.1 TH/MM3 (0-0.4); EOSINOPHIL % 1.8 % (0.0-4.0); LYMPHOCYTE # 1.8 TH/MM3 (1.0-4.8); MEAN CELL VOLUME 113.5 FL (80.0-100.0); MEAN CORPUSCULAR HEMOGLOBIN 34.4 PG (27.0-34.0); MEAN CORPUSCULAR HGB CONC 30.3 % (32.0-36.0); MONO % 13.9 % (0.0-8.0); NEUT % 44.8 % (16.0-70.0); PLATELET COUNT 231 TH/MM3 (150-450); RED BLOOD COUNT 1.03 MIL/MM3 (4.00-5.30); RED CELL DISTRIBUTION WIDTH 35.7 % (11.6-17.2); WHITE BLOOD COUNT 4.7 TH/MM3 (4.0-11.0)
[2017-04-07 21:32] LABS: BICARBONATE 19.2 MEQ/L (21.0-32.0); MAGNESIUM 2.4 MG/DL (1.5-2.5); POTASSIUM 3.8 MEQ/L (3.5-5.1)
[2017-04-07 21:37] LABS: HEMO FLAGS AUTO DIFF
--- NOTE | 2017-04-07 21:37 | RADRPT ---
EXAM DATE/TIME: 04/07/2017 21:23 [facility] COMPARISON: CHEST SINGLE AP, July 21, 2016, 15:31. INDICATIONS : Cough MEDICAL HISTORY : None. SURGICAL HISTORY : None. ENCOUNTER: Initial ACUITY: 1 day PAIN SCORE: 0/10 LOCATION: Bilateral chest FINDINGS: There is marked enlargement of the cardiac/pericardial silhouette. Bilateral patchy infiltrates great est in the lung bases. No obvious effusions. Osseous structures are intact. CONCLUSION: Diffuse bilateral infiltrates greatest at the bases. Marked cardiomegaly. Zach Doshi MD on April 07, 2017 at 21:35 Board Certified Radiologist. This report was verified electronically.
[2017-04-07 21:41] LABS: APTT (PATIENT) 24.7 SEC (24.3-30.1); HEMATOCRIT 11.7 % (35.0-46.0); INTERNATIONAL NORMALIZED RATIO 1.1 RATIO
[2017-04-07] MEDS ORDERED: FUROSEMIDE 40 MG/4 ML VIAL IV PUSH ONE (21:45)
[2017-04-07] MEDS ORDERED: SODIUM CHLOR 0.9% 250 ML INJ 250 ML IV ONE (21:45)
[2017-04-07] MEDS ORDERED: SODIUM CHLORIDE 0.9% FLUSH 10 ML FLUSH IV FLUSH PRN (22:15)
[2017-04-07] MEDS ORDERED: MISCELLANEOUS NURSING INFORMATION XX SCH (22:15)
[2017-04-07] MEDS ORDERED: MAGNESIUM HYDROXIDE SUSP 30 ML CUP PO PRN (22:15)
[2017-04-07] MEDS ORDERED: SENNOSIDES 8.6 MG TAB PO PRN (22:15)
[2017-04-07] MEDS ORDERED: ONDANSETRON HCL 4 MG/2 ML VIAL IV PUSH PRN (22:15)
[2017-04-07] MEDS ORDERED: ACETAMINOPHEN 325 MG TAB PO PRN (22:15)
[2017-04-07] MEDS ORDERED: BISACODYL 10 MG SUPP RECTAL PRN (22:15)
[2017-04-07] MEDS ORDERED: ZOLPIDEM TARTRATE 5 MG TAB PO PRN (22:15)
[2017-04-07] MEDS ORDERED: RESP: ALBUTEROL 2.5 MG/IPRATROPIUM 0.5 MG NEB (PRN) INH (22:15)
[2017-04-07] MEDS ORDERED: CHLORHEXIDINE GLUCONATE 2 % 1 PACK (2 CLOTHS) TOP PRN (22:15)
[2017-04-07] MEDS ORDERED: LACTULOSE SYRUP 20 GM/30 ML CUP PO PRN (22:15)
[2017-04-07 22:21] LABS: KERATOCYTES OCC (NORMAL); OVALOCYTES 1+ (NORMAL); PLATELET ESTIMATE SMEAR NORMAL (NORMAL); PLATELET MORPHOLOGY NORMAL (NORMAL)
[2017-04-07 22:22] LABS: SCAN/DIFF AUTO DIFF CONFIRMED; TEARDROP RBCS 2+ (NORMAL)
[2017-04-07 22:52] VITALS: BP 134/63; PULSE 99; RESP 18; O2SAT 93
[2017-04-07 23:08] LABS: RHEUMATOID FACTOR TRIGGER 17.6 IU/ML (0.0-14.9)
[2017-04-08] VITALS (11 sets, daily range): BP systolic 89–131; BP diastolic 55–66; PULSE 84–101; RESP 18–24; TEMP 97.9–99.6; O2SAT 90–95
--- NOTE | 2017-04-08 | HHI.HP ---
HPI Service Critical Care Medicine Primary Care Physician No Primary Care Physician Admission Diagnosis symptomatic anemia Diagnosis: Travel History International Travel<30 Days: No Contact w/Intl Traveler <30 Da: No Traveled to Known Affected Are: No History of Present Illness HPI 61-year-old female that presents to the ED for evaluation of generalized weakness. Per patient for about a week she's been having cold-like symptoms and weakness. Patient she feels short of breath with exertion. She denies any chest pain. No abdominal pain. Per patient she went to [facility] and got a medication to help with her congestion and states that ever since she took it she feels more dry than usual. Per patient her legs are getting swollen since she started this new medication. Per patient is [id number] and she does not remember the name but is supposed to be at the congestion. Per patient it is a pill. She has a chronic history of anemia and takes iron supplementation as well as B12 outpatient. She does not follow with the coremaker floor. She has required transfusions in the past. She states that she has congestion and cough. No sick contacts. No allergies to medication. Per patient she comes here mainly for the weakness. Patient states that she does not want to stay in the hospital. 61-year-old female was brought to the ER for generalized weakness which she states she has been having for about a week along with shortness of breath with exertion. Per patient she developed some congestion and got some medication from [facility] a week back. Her condition seems to have been worsening since then. She also has developed leg swelling which started about 1 week prior to presentation. She admits to having a history of anemia and takes iron supplementation B-12 as outpatient. She was in fact admitted in July 2016 however left the hospital AGAINST MEDICAL ADVICE despite having been evaluated by coremaker floor Dr. Calvin who wish to do anemia workup. At that time her hemoglobin was 2.5 g percent she was transfused PRBCs. Patient was noted to be anemic with hemoglobin of 3.5 now and was accepted for admission by critical care medicine service. ER has ordered 2 units PRBCs to be transfused now however they have not yet been initiated. When I evaluated the patient in the ER she was laying in the ER stretcher and appeared comfortable in no acute distress. History was obtained by reviewing records and discussion with patient and ER PA. History PFSH Past Medical History Anemia: Yes Arthritis: No Asthma: No Autoimmune Disease: No Anxiety: No Depression: No Cancer: No Cardiovascular Problems: No High Cholesterol: No Chemotherapy: No Chest Pain: No Congestive Heart Failure: No COPD: No Cerebrovascular Accident: No Diabetes: No Diminished Hearing: No Endocrine: No GERD: No Genitourinary: No Hiatal Hernia: No Immune Disorder: No Kidney Stones: No Musculoskeletal: No Neurologic: No Psychiatric: No Reproductive: No Respiratory: No Migraines: No Radiation Therapy: No Renal Failure: No Seizures: No Sickle Cell Disease: No Thyroid Disease: No Ulcer: No Past Surgical History Surgical History: No Previous Surgery Abdominal Surgery: No AICD: No Cardiac Surgery: No Genitourinary Surgery: No Gynecologic Surgery: No Insulin Pump: No Joint Replacement: No Pacemaker: No Thoracic Surgery: No Social History Alcohol Use: No Tobacco Use: No Substance Use: No Allergies-Medications Allergies-Medications (Allergen,Severity, Reaction): Coded Allergies: No Known Allergies (Verified , 04/07/17) Reported Meds & Prescriptions Reported Meds & Active Scripts Active No Active Prescriptions or Reported Medications ROS Review of Systems Except as stated in HPI: all other systems reviewed are Neg Past Family Social History Allergies: Coded Allergies: No Known Allergies (Verified , 04/07/17) Physical Exam Vital Signs Vital Signs Date Time Temp Pulse Resp B/P (MAP) Pulse Ox O2 Delivery O2 Flow Rate FiO2 04/07/17 22:52 99 18 134/63 (86) 93 Nasal Cannula 3.00 04/07/17 20:26 110 20 144/65 (91) 92 Room Air 04/07/17 19:23 99.0 110 18 137/60 (85) 95 Room Air Physical Exam Narrative GENERAL: SKIN: Warm and dry. HEAD: Atraumatic. Normocephalic. EYES: Pupils equal and round. No scleral icterus. No injection or drainage. Pallor present ENT: No nasal bleeding or discharge. Mucous membranes pink and moist. Tongue is midline. No uvula deviation. TMs are clear with no sign of infection or perforation. NECK: Trachea midline. No JVD. CARDIOVASCULAR: Regular rate and rhythm. RESPIRATORY: No accessory muscle use. Clear to auscultation. Breath sounds equal bilaterally. GASTROINTESTINAL: Abdomen soft, non-tender, nondistended. Hepatic and splenic margins not palpable. MUSCULOSKELETAL: Extremities without clubbing, cyanosis, or edema. No obvious deformities. Full range of motion of the upper and lower extremities bilaterally. 1+ pitting edema on the lower extremities. 2+ pulses bilaterally. NEUROLOGICAL: Awake and alert. No obvious cranial nerve deficits. Motor grossly within normal limits. Five out of 5 muscle strength in the arms and legs. Normal speech. PSYCHIATRIC: Appropriate mood and affect; insight and judgment normal. Laboratory Laboratory Tests Test 04/07/17 20:35 White Blood Count 4.7 Red Blood Count 1.03 Hemoglobin 3.5 Hematocrit 11.7 Mean Corpuscular Volume 113.5 Mean Corpuscular Hemoglobin 34.4 Mean Corpuscular Hemoglobin Concent 30.3 Red Cell Distribution Width 35.7 Platelet Count 231 Mean Platelet Volume 10.0 Neutrophils (%) (Auto) 44.8 Lymphocytes (%) (Auto) 39.0 Monocytes (%) (Auto) 13.9 Eosinophils (%) (Auto) 1.8 Basophils (%) (Auto) 0.5 Neutrophils # (Auto) 2.1 Lymphocytes # (Auto) 1.8 Monocytes # (Auto) 0.7 Eosinophils # (Auto) 0.1 Basophils # (Auto) 0.0 CBC Comment AUTO DIFF Differential Comment AUTO DIFF CONFIRMED Platelet Estimate NORMAL Platelet Morphology Comment NORMAL Basophilic Stippling FAINT Tear Drop Cells 2+ Ovalocytes 1+ Keratocytes OCC Haptoglobin LESS THAN 8 Prothrombin Time 12.0 Prothromb Time International Ratio 1.1 Activated Partial Thromboplast Time 24.7 Blood Urea Nitrogen 8 Creatinine 0.78 Random Glucose 105 Calcium Level 7.6 Magnesium Level 2.4 Sodium Level 134 Potassium Level 3.8 Chloride Level 106 Carbon Dioxide Level 19.2 Anion Gap 9 Estimat Glomerular Filtration Rate 91 Lactic Acid Level 1.6 B-Type Natriuretic Peptide 341 Thyroid Stimulating Hormone 3rd Gen 1.550 Rheumatoid Factor Screen POSITIVE Rheumatoid Factor Titer 17.6 Date/Time Source Procedure Growth Status 04/07/17 20:35 Nasal Washing Influenza Types A,B Antigen (PRICILA) - Final NEGATIVE FOR FLU A AND B ANTIGEN.... Complete Result Diagram: 04/07/17203404/07/172034 Imaging Last Impressions Chest X-Ray 04/07/172027 Signed Impressions: Service Date/Time: Friday, April 07, 2017 21:23 - CONCLUSION: Diffuse bilateral infiltrates greatest at the bases. Marked cardiomegaly. MD Marni Bañuelos VTE Risk Assessment Caprini VTE Risk Assessment: Mod/High Risk (score >= 2) VTE Pharm Contraindication: High risk for bleeding Caprini Risk Assessment Model Point Value = 1 Point Value = 2 Point Value = 3 Point Value = 5 Age 41-60 Minor surgery BMI > 25 kg/m2 Swollen legs Varicose veins or History of unexplained or recurrent spontaneous Oral contraceptives or hormone replacement Sepsis (< 1 month) Serious lung disease, including pneumonia (< 1 month) Abnormal pulmonary function Acute myocardial infarction Congestive heart failure (< 1 month) History of inflammatory bowel disease Medical patient at bed rest Age 61-74 Arthroscopic surgery Major open surgery (> 45 min) Laparoscopic surgery (> 45 min) Malignancy Confined to bed (> 72 hours) Immobilizing plaster cast Central venous access Age >= 75 History of VTE Family history of VTE Factor V Leiden Prothrombin [id number] Lupus anticoagulant Anticardiolipin antibodies Elevated serum homocysteine Heparin-induced thrombocytopenia Other congenital or acquired thrombophilia Stroke (< 1 month) Elective arthroplasty Hip, pelvis, or leg fracture Acute spinal cord injury (< 1 month) Prophylaxis Regimen Total Risk Factor Score Risk Level Prophylaxis Regimen 0-1 Low Early ambulation 2 Moderate Order ONE of the following: *Sequential Compression Device (SCD) *Heparin 5000 units SQ BID 3-4 Higher Order ONE of the following medications: *Heparin 5000 units SQ TID *Enoxaparin/Lovenox 40 mg SQ daily (WT < 150 kg, CrCl > 30 mL/min) *Enoxaparin/Lovenox 30 mg SQ daily (WT < 150 kg, CrCl > 10-29 mL/min) *Enoxaparin/Lovenox 30 mg SQ BID (WT < 150 kg, CrCl > 30 mL/min) AND/OR *Sequential Compression Device (SCD) 5 or more Highest Order ONE of the following medications: *Heparin 5000 units SQ TID (Preferred with Epidurals) *Enoxaparin/Lovenox 40 mg SQ daily (WT < 150 kg, CrCl > 30 mL/min) *Enoxaparin/Lovenox 30 mg SQ daily (WT < 150 kg, CrCl > 10-29 mL/min) *Enoxaparin/Lovenox 30 mg SQ BID (WT < 150 kg, CrCl > 30 mL/min) AND *Sequential Compression Device (SCD) Assessment and Plan Assessment and Plan 61-year-old female with: Severe anemia Acute respiratory failure Edema Plan: Neuro: Follow neuro status. Cardiovascular: Patient appears to be in CHF secondary to severe anemia. Will diurese with Lasix while transfusing PRBCs. Watch for hypotension. Pulmonary: On supplemental O2. Bronchodilators when necessary. GI/liver: By mouth diet as tolerated. Renal/: Strict intake output, monitor and replete electro lites, follow BUN/ creatinine. Diuresed with Lasix due to CHF while transfusing. ID: No antibiotics at this time. Heme: Ordered anemia workup including iron studies, B-12/folate level, MMA, homocysteine, haptoglobin, LDH, direct Juan Manuel. Hematology consulted for further evaluation. Endocrine SSI for glycemic control as needed. Prophylaxis: PPI/SCDs. No heparin or Lovenox due to extremely low hemoglobin. Started when okay with hematology. Condition critical. Time spent on critical care excluding procedures 45 minutes. I have asked ER nurse to start PRBC transfusion ODIN. Patient is awaiting transfer to ICU. Addenum. Patient hemodyamically stable. Seen by Dr. Abdul 07/17. Needs BM bx. Will tx PRBC and tx to [facility]. Donny Flores MD Apr 08, 2017 00:00 Ricky Parsons MD Apr 08, 2017 06:16
[2017-04-08] MEDS ORDERED: FUROSEMIDE 20 MG/2 ML VIAL IV PUSH ONE (00:15)
[2017-04-08] MEDS ORDERED: CHLORHEXIDINE GLUCONATE 2 % 1 PACK (2 CLOTHS) TOP SCH (04:00)
--- NOTE | 2017-04-08 04:58 | RADRPT ---
EXAM DATE/TIME: 04/08/2017 04:27 [facility] COMPARISON: CHEST SINGLE AP, April 07, 2017, 21:23. INDICATIONS : Shortness of breath, possible pulmonary disease. MEDICAL HISTORY : None. SURGICAL HISTORY : None. ENCOUNTER: Subsequent ACUITY: 2 days PAIN SCORE: 0/10 LOCATION: Bilateral chest FINDINGS: A single portable frontal view of the chest shows persistent marked at cardiomegaly. Bibasilar pulmon josefina consolidations more pronounced on the right have shown no change. No effusions. CONCLUSION: 1. Unchanged significant cardiomegaly and bibasilar pulmonary infiltrates. Williams Elizabeth Jr., MD on April 08, 2017 at 4:56 Board Certified Radiologist. This report was verified electronically.
[2017-04-08] MEDS ORDERED: FAMOTIDINE 20 MG TAB PO SCH (09:00)
[2017-04-08] MEDS ORDERED: DOCUSATE SODIUM 50 MG/SENNA 8.6 MG TAB PO SCH (09:00)
[2017-04-08] MEDS ORDERED: SODIUM CHLORIDE 0.9% FLUSH 10 ML FLUSH IV FLUSH SCH (09:00)
[2017-04-08 09:51] LABS: AUTOMATED NEUTROPHIL # 2.2 TH/MM3 (1.8-7.7); BASOPHIL % 0.8 % (0.0-2.0); EOSINOPHIL # 0.1 TH/MM3 (0-0.4); LYMPH % 28.9 % (9.0-44.0); LYMPHOCYTE # 1.2 TH/MM3 (1.0-4.8); MEAN CELL VOLUME 94.3 FL (80.0-100.0); MEAN CORPUSCULAR HEMOGLOBIN 31.6 PG (27.0-34.0); MEAN CORPUSCULAR HGB CONC 33.5 % (32.0-36.0); MONO % 12.9 % (0.0-8.0); NEUT % 54.4 % (16.0-70.0); PLATELET COUNT 207 TH/MM3 (150-450); RED BLOOD COUNT 1.77 MIL/MM3 (4.00-5.30); RED CELL DISTRIBUTION WIDTH 32.6 % (11.6-17.2); WHITE BLOOD COUNT 4.1 TH/MM3 (4.0-11.0)
[2017-04-08 09:52] LABS: RETIC % 10.6 % (0.4-3.0)
[2017-04-08 09:53] LABS: REVIEW FLAG FINAL
[2017-04-08 09:57] LABS: HEMO FLAGS AUTO DIFF
[2017-04-08 09:59] LABS: APTT (PATIENT) 22.6 SEC (24.3-30.1); PROTHROMBIN TIME - PATIENT 11.6 SEC (9.8-11.6)
[2017-04-08 10:01] LABS: HEMATOCRIT 16.7 % (35.0-46.0)
[2017-04-08 10:44] LABS: WESTERGREN SEDIMENTATION RATE GREATER THAN 140 mm/hr (0-30)
[2017-04-08 10:53] LABS: KERATOCYTES OCC (NORMAL); OVALOCYTES 1+ (NORMAL); SCAN/DIFF AUTO DIFF CONFIRMED; TEARDROP RBCS 1+ (NORMAL)
[2017-04-08 10:56] LABS: HOWELL-JOLLY BODIES PRESENT (NONE SEEN)
[2017-04-08 10:57] LABS: ALKALINE PHOSPHATASE 52 U/L (45-117); ALT (GPT) 27 U/L (10-53); ANION GAP 7 MEQ/L (5-15); AST (GOT) 33 U/L (15-37); BICARBONATE 20.8 MEQ/L (21.0-32.0); BLOOD UREA NITROGEN 8 MG/DL (7-18); CHLORIDE 108 MEQ/L (98-107); FERRITIN 632 NG/ML (8-252); GLOMERULAR FILTRATION RATE 108 ML/MIN (>89); LDH SERUM 352 U/L (84-246); MAGNESIUM 2.3 MG/DL (1.5-2.5); POTASSIUM 3.6 MEQ/L (3.5-5.1); SODIUM (NA) 136 MEQ/L (136-145); TOTAL BILIRUBIN ADULT 2.1 MG/DL (0.2-1.0); TRANSFERRIN IRON PROFILE 145 MG/DL (200-360)
[2017-04-08 11:03] LABS: CALCIUM-PROTEIN CORRECTED 6.7 MG/DL (8.5-10.1)
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
--- NOTE | 2017-04-08 13:02 | EKG ---
Date Performed: 04/07/2017 Time Performed: 22:37:55 PTAGE: 61 years EKG: Sinus rhythm NONSPECIFIC T-WAVE ABNORMALITY BORDERLINE ECG PREVIOUS TRACING : 07/21/2016 12.57 DOCTOR: Hector Dhaliwal Interpretating Date/Time 04/08/2017 12:58:43
--- NOTE | 2017-04-08 23:06 | HHI.DS ---
Discharge Summary Admission Date Apr 07, 2017 at 22:10 Discharge Date: Apr 08, 2017 Admitting Diagnosis symptomatic anemia (1) Myelofibrosis ICD Code: D75.81 - Myelofibrosis (2) Symptomatic anemia ICD Code: D64.9 - Anemia, unspecified Status: Acute Procedures None. Brief History - From Admission HPI 61-year-old female that presents to the ED for evaluation of generalized weakness. Per patient for about a week she's been having cold-like symptoms and weakness. Patient she feels short of breath with exertion. She denies any chest pain. No abdominal pain. Per patient she went to [facility] and got a medication to help with her congestion and states that ever since she took it she feels more dry than usual. Per patient her legs are getting swollen since she started this new medication. Per patient is [id number] and she does not remember the name but is supposed to be at the congestion. Per patient it is a pill. She has a chronic history of anemia and takes iron supplementation as well as B12 outpatient. She does not follow with the [facility]. She has required transfusions in the past. She states that she has congestion and cough. No sick contacts. No allergies to medication. Per patient she comes here mainly for the weakness. Patient states that she does not want to stay in the hospital. 61-year-old female was brought to the ER for generalized weakness which she states she has been having for about a week along with shortness of breath with exertion. Per patient she developed some congestion and got some medication from [facility] a week back. Her condition seems to have been worsening since then. She also has developed leg swelling which started about 1 week prior to presentation. She admits to having a history of anemia and takes iron supplementation B-12 as outpatient. She was in fact admitted in July 2016 however left the hospital AGAINST MEDICAL ADVICE despite having been evaluated by [facility] Dr. Calvin who wish to do anemia workup. At that time her hemoglobin was 2.5 g percent she was transfused PRBCs. Patient was noted to be anemic with hemoglobin of 3.5 now and was accepted for admission by critical care medicine service. ER has ordered 2 units PRBCs to be transfused now however they have not yet been initiated. When I evaluated the patient in the ER she was laying in the ER stretcher and appeared comfortable in no acute distress. History was obtained by reviewing records and discussion with patient and ER PA. History PFSH Past Medical History Anemia: Yes Arthritis: No Asthma: No Autoimmune Disease: No Anxiety: No Depression: No Cancer: No Cardiovascular Problems: No High Cholesterol: No Chemotherapy: No Chest Pain: No Congestive Heart Failure: No COPD: No Cerebrovascular Accident: No Diabetes: No Diminished Hearing: No Endocrine: No GERD: No Genitourinary: No Hiatal Hernia: No Immune Disorder: No Kidney Stones: No Musculoskeletal: No Neurologic: No Psychiatric: No Reproductive: No Respiratory: No Migraines: No Radiation Therapy: No Renal Failure: No Seizures: No Sickle Cell Disease: No Thyroid Disease: No Ulcer: No Past Surgical History Surgical History: No Previous Surgery Abdominal Surgery: No AICD: No Cardiac Surgery: No Genitourinary Surgery: No Gynecologic Surgery: No Insulin Pump: No Joint Replacement: No Pacemaker: No Thoracic Surgery: No Social History Alcohol Use: No Tobacco Use: No Substance Use: No Allergies-Medications Allergies-Medications (Allergen,Severity, Reaction): Coded Allergies: No Known Allergies (Verified , 04/07/17) Reported Meds & Prescriptions Reported Meds & Active Scripts Active No Active Prescriptions or Reported Medications ROS Review of Systems Except as stated in HPI: all other systems reviewed are Neg CBC/BMP: 04/08/17 0907 04/08/17 0907 Significant Findings Laboratory Tests Test 04/07/17 20:35 04/08/17 00:00 04/08/17 09:07 Red Blood Count 1.03 MIL/MM3 (4.00-5.30) 1.77 MIL/MM3 (4.00-5.30) Hemoglobin 3.5 GM/DL (11.6-15.3) 5.6 GM/DL (11.6-15.3) Hematocrit 11.7 % (35.0-46.0) 16.7 % (35.0-46.0) Mean Corpuscular Volume 113.5 FL (80.0-100.0) Mean Corpuscular Hemoglobin 34.4 PG (27.0-34.0) Mean Corpuscular Hemoglobin Concent 30.3 % (32.0-36.0) Red Cell Distribution Width 35.7 % (11.6-17.2) 32.6 % (11.6-17.2) Monocytes (%) (Auto) 13.9 % (0.0-8.0) 12.9 % (0.0-8.0) Basophilic Stippling FAINT (NORMAL) Tear Drop Cells 2+ (NORMAL) 1+ (NORMAL) Ovalocytes 1+ (NORMAL) 1+ (NORMAL) Keratocytes OCC (NORMAL) OCC (NORMAL) Haptoglobin LESS THAN 8 MG/DL (30-200) Prothrombin Time 12.0 SEC (9.8-11.6) Calcium Level 7.6 MG/DL (8.5-10.1) 7.0 MG/DL (8.5-10.1) Sodium Level 134 MEQ/L (136-145) Carbon Dioxide Level 19.2 MEQ/L (21.0-32.0) 20.8 MEQ/L (21.0-32.0) B-Type Natriuretic Peptide 341 PG/ML (0-100) Rheumatoid Factor Screen POSITIVE (NEGATIVE) Rheumatoid Factor Titer 17.6 IU/ML (0.0-14.9) Mean Platelet Volume 11.2 FL (7.0-11.0) Erythrocyte Sedimentation Rate GREATER THAN 140 mm/hr Reticulocyte Count 10.6 % (0.4-3.0) Absolute Reticulocyte Count 191.9 MIL/L (20.0-150.0) Activated Partial Thromboplast Time 22.6 SEC (24.3-30.1) Albumin 3.1 GM/DL (3.4-5.0) Phosphorus Level 1.8 MG/DL (2.5-4.9) Lactate Dehydrogenase 352 U/L (84-246) Total Bilirubin 2.1 MG/DL (0.2-1.0) Chloride Level 108 MEQ/L (98-107) Protein Corrected Calcium 6.7 MG/DL (8.5-10.1) Iron Level 193 MCG/DL (50-170) Total Iron Binding Capacity 203 MCG/DL (250-450) Percent Iron Saturation 95.1 % (20-50) Ferritin 632 NG/ML (8-252) C-Reactive Protein 0.35 MG/DL (0.00-0.30) Imaging Last Impressions Chest X-Ray 04/08/17 0600 Signed Impressions: Service Date/Time: Saturday, April 08, 2017 04:27 - CONCLUSION: 1. Unchanged significant cardiomegaly and bibasilar pulmonary infiltrates. Williams Elizabeth Jr., MD PE at Discharge GENERAL: Alert, Oriented x 3, NAD. SKIN: Warm and dry. HEAD: Normocephalic. EYES: No scleral icterus. No injection or drainage. NECK: Supple, trachea midline. No JVD or lymphadenopathy. CARDIOVASCULAR: Regular rate and rhythm without murmurs, gallops, or rubs. RESPIRATORY: Breath sounds equal bilaterally. No accessory muscle use. GASTROINTESTINAL: Abdomen soft, non-tender, nondistended. MUSCULOSKELETAL: No cyanosis, or edema. BACK: Nontender without obvious deformity. No CVA tenderness. Pt update on day of discharge Patient is doing well. Receiving 4th unit of PRBCs. No chest pain, SOB, fever, chills. Sitting in her bed. Hospital Course Ms. Swan was admitted due to symptomatic anemia with extremely low hemoglobin. She received 4 units of PRBCs. Critical care initially managed patient. Patient was also seen by hematology. Despite counselled by all of her doctors as well as nurse in the hospital, patient decided to leave against medical advice. I personally advised patient to stay at least until tomorrow morning so that we can monitor her and check her hemoglobin, she refused to stay. Patient is alert, oriented x 3. She understands that she can always come back to the hospital. Pt Condition on Discharge: Good Discharge Disposition: Discharge Home (Patient left hospital AMA) Discharge Time: <= 30 minutes Discharge Instructions Medication Profile: No Active Prescriptions or Reported Meds Yue Dukes DO Apr 08, 2017 23:06
[2017-04-09 16:25] LABS: ANA SCREEN POS (NEG)
[2017-04-10 23:52] LABS: INTRINSIC FACTOR BLOCKING AUTO NEGATIVE (NEGATIVE)
[2017-04-11 16:12] LABS: ANA TITER QUANT >1:1280 (NEG)
== END 2017-04-08 14:43 | disposition left against medical advice (07) | DRG 812 ==
LOC: NEPC 19:21 → NEDA 22:10 → HIMN 23:50
PROVIDERS: ADMIT Hospitalist; ATTEND Hospitalist
PROC: 30233N1 Transfusion of Nonautologous Red Blood Cells into Peripheral Vein, Percutaneous Approach (ICD-10-PCS; principal; 2017-04-08)
DX: D53.9 Nutritional anemia, unspecified (principal); I50.9 Heart failure, unspecified; D75.81 Myelofibrosis; Z87.891 Personal history of nicotine dependence
CPT/HCPCS: 36430; 71010; 80048; 80053; 82550; 82607; 82668; 82728; 82746; 82747; 83010; 83090; 83516; 83540; 83550; 83605; 83615; 83735; 83880; 83921; 84100; 84443; 85025; 85044; 85060; 85610; 85652; 85730; 86038; 86039; 86077; 86140; 86340; 86430; 86850; 86870; 86880; 86900; 86901; 86920; 86922; 87641; 87804; 93005; 94150; 96360; J1940; J7040; P9016